=== PATIENT | female | born 1980 | race Caucasian/White ===

== ENCOUNTER 2016-06-17 15:47 | Outpatient (CLI) ==
[2016-04-06 18:58] VITALS: BMI 18.4
[2016-06-17 16:11] LABS: BASOPHILS # (AUTO) 0.1 K/uL (0-0.2); BASOPHILS % (AUTO) 0.8 % (0.0-3.0); EOSINOPHILS # (AUTO) 0.2 K/ul (0.0-0.7); EOSINOPHILS % (AUTO) 2.4 % (0.0-7.0); HEMATOCRIT 33.1 % (37.0-47.0); HEMOGLOBIN 9.3 g/dl (12.0-16.0); IMMATURE GRANULOCYTE % (AUTO) 0.3 % (0.0-5.0); LYMPHOCYTES # (AUTO) 2.2 K/uL (0.60-3.4); LYMPHOCYTES % (AUTO) 29.3 (10.0-50.0); MEAN CORPUSCULAR HEMOGLOBIN 18.1 pg (27.0-31.0); MEAN CORPUSCULAR HGB CONC 28.1 (31.8-35.4); MEAN CORPUSCULAR VOLUME 64.3 fl (81.0-99.0); MONOCYTES # (AUTO) 0.6 K/uL (0.4-2.0); MONOCYTES % (AUTO) 7.8 (0-10); NEUTROPHILS # (AUTO) 4.4 K/ul (2.0-6.9); NEUTROPHILS % (AUTO) 59.4; PLATELET COUNT 297 10^3/uL (140-440); RED BLOOD COUNT 5.15 10^6/ul (4.20-5.40); WHITE BLOOD COUNT 7.43 K/ul (4.6-10.2)
[2016-06-17 16:17] LABS: BILIRUBIN,URINE Negative (NEGATIVE); KETONES,URINE Negative (NEGATIVE); LEUKOCYTE ESTERASE ,URINE Negative (NEGATIVE); NITRITE,URINE Negative (NEGATIVE); PROTEIN,URINE Negative (NEGATIVE); URINE, BLOOD Negative (NEGATIVE)
[2016-06-17 16:24] LABS: ADD URINE MICROSCOPIC YES; COCAIN SCREEN,URINE NEGATIVE (NEGATIVE)
[2016-06-17 16:27] LABS: BACTERIA,URINE TRACE (NOT PRESENT)
--- NOTE | 2016-06-17 16:32 | DI ---
EXAM: Chest two view, frontal and lateral views. HISTORY: Chest pain. COMPARISON: 02/17/2016. FINDINGS: The heart size is normal. There is no pulmonary vascular congestion. The lungs are fabiola r. No pleural effusion or pneumothorax is seen. No acute osseous abnormality identified. Since prior study, there has been no significant interval change. IMPRESSION: No acute cardiopulmonary process.
[2016-06-17 17:07] LABS: ALBUMIN 4.1 g/dL (3.4-5.0); ALBUMIN/GLOBULIN RATIO 1.17; BILIRUBIN,TOTAL 0.54 mg/dL (0.00-1.20); BUN/CREATININE RATIO 11.11; CALCIUM 9.2 mg/dL (8.2-10.2); CREATININE 0.81 mg/dL (0.60-1.30); TOTAL PROTEIN 7.6 g/dL (6.4-8.2)
== END 2016-06-17 15:48 | disposition home or self-care (01) ==
LOC: LAB 15:47
PROVIDERS: ATTEND Family Medicine
DX: Z00.00 Encounter for general adult medical examination without abnormal findings (principal); I10 Essential (primary) hypertension; R07.9 Chest pain, unspecified; D50.9 Iron deficiency anemia, unspecified
CPT/HCPCS: 36415; 80053; 80061; 80306; 81001; 84439; 84443; 85025

== ENCOUNTER 2016-07-15 12:35 | Emergency (ER) ==
[2016-07-15 12:41] VITALS: BP 137/87; TEMP 98.9; BMI 20.7
[2016-07-15] MEDS ORDERED: ATIVAN IM STA (13:11)
[2016-07-15 13:41] LABS: BASOPHILS # (AUTO) 0.1 K/uL (0-0.2); BASOPHILS % (AUTO) 1.2 % (0.0-3.0); EOSINOPHILS # (AUTO) 0.1 K/ul (0.0-0.7); EOSINOPHILS % (AUTO) 1.3 % (0.0-7.0); HEMATOCRIT 33.1 % (37.0-47.0); HEMOGLOBIN 9.7 g/dl (12.0-16.0); IMMATURE GRANULOCYTE % (AUTO) 0.2 % (0.0-5.0); LYMPHOCYTES % (AUTO) 33.6 (10.0-50.0); MEAN CORPUSCULAR HEMOGLOBIN 18.7 pg (27.0-31.0); MEAN CORPUSCULAR HGB CONC 29.3 (31.8-35.4); MEAN CORPUSCULAR VOLUME 63.8 fl (81.0-99.0); MONOCYTES # (AUTO) 0.4 K/uL (0.4-2.0); MONOCYTES % (AUTO) 6.6 (0-10); NEUTROPHILS # (AUTO) 3.5 K/ul (2.0-6.9); NEUTROPHILS % (AUTO) 57.1; PLATELET COUNT 298 10^3/uL (140-440); RED BLOOD COUNT 5.19 10^6/ul (4.20-5.40); WHITE BLOOD COUNT 6.08 K/ul (4.6-10.2)
[2016-07-15 13:59] LABS: URINE PREGNANCY INTERNAL QC INTERNAL QC VALID
--- NOTE | 2016-07-15 14:04 | DI ---
EXAM: Chest two view, frontal and lateral views. HISTORY: Chest pain. COMPARISON: 06/17/2016. FINDINGS: The heart size is normal. There is no pulmonary vascular congestion. The lungs are fabiola r. No pleural effusion or pneumothorax is seen. No acute osseous abnormality identified. Since prior study, there has been no significant interval change. IMPRESSION: No acute cardiopulmonary process.
[2016-07-15 14:08] LABS: ALANINE AMINOTRANSFERASE < 6 U/L (12-78); ALBUMIN 4.1 g/dL (3.4-5.0); ALBUMIN/GLOBULIN RATIO 1.21; ALKALINE PHOSPHATASE 43 U/L (42-98); ANION GAP 14.6; ASPARTATE AMINO TRANSFERASE 11 U/L (15-37); BILIRUBIN,TOTAL 0.48 mg/dL (0.00-1.20); BLOOD UREA NITROGEN 6 mg/dL (7-18); BUN/CREATININE RATIO 7.69; CALCIUM 9.6 mg/dL (8.2-10.2); CARBON DIOXIDE 22 mmol/L (21-32); CHLORIDE 109 mmol/L (98-107); CREATINE KINASE 55 U/L; CREATININE 0.78 mg/dL (0.60-1.30); GLUCOSE 90 mg/dL (70-110); POTASSIUM 3.6 mmol/L (3.5-5.10); SODIUM 142 mmol/L (136-145); TOTAL PROTEIN 7.5 g/dL (6.4-8.2)
--- NOTE | 2016-07-15 14:37 | ED.PDOC ---
General ED Provider: Dr. MERRICK [place] Chief Complaint: Chest Pain Stated Complaint: chest pain Time Seen by Physician: 12:40 (pt is sad and anxious over her son's approaching anniversery of his passing) Mode of Arrival: Walk-In Information Source: Patient Exam Limitations: No limitations Primary Care Provider: JESSICA SALCEDO Nursing and Triage Documentation Reviewed and Agree: Yes (no extertional compenent) Cardiovascular Complaint Exam - Chest Pain Complaint/Exam Onset: Gradual Duration: 1 day Symptoms Are: Resolved Timing: Intermittent (when pt thinks about the event) Initial Severity: Mild Current Severity: None Location: Reports: Midsternal Pain Radiates: Reports: None Character: Reports: Dull Aggravating: Reports: None Alleviating: Reports: None Associated Signs and Symptoms: Denies: Diaphoresis, Nausea, Vomiting, Fever, Palpitations, Cough, Hemoptysis, Back pain, Abdominal pain, Dizziness, Short of air, Calf pain, Calf swelling Related History: Reports: Similar episode Related Surgical History: Reports: None History of Healthcare-Acquired Pneumonia: Reports: No AMI/ACS Risk Factors: Reports: Hypertension TAD Risk Factors: Reports: Hypertension Pulmonary Embolism Risk Factors: Reports: None Prior Care for this Complaint: No Recent Stress Test: No Recent Echo/LV Function: No JVD Present: No Subcutaneous Emphysema Present: No Diminshed Breath Sounds: No Reproducible Chest Wall Pain: No Bilateral Pulses Present: No Unequal Pulses Noted: No If Risk Factors for AMI/ACS Consider: EKG, Cardiac Enzymes Bioinformatics Support Specialist Consulted: No Differential Diagnoses: Other (anxiety) Review of Systems - Review Of Systems Constitutional: Reports: No symptoms Eyes: Reports: No symptoms Ears, Nose, Mouth, Throat: Reports: No symptoms Respiratory: Reports: No symptoms Cardiac: Reports: Chest pain GI: Reports: No symptoms : Reports: No symptoms Musculoskeletal: Reports: No symptoms Skin: Reports: No symptoms Neurological: Reports: Other (DEPRESSED, ANXIOUS NOT SUICIDAL) Endocrine: Reports: No symptoms Hematologic/Lymphatic: Reports: No symptoms All Other Systems: Reviewed and Negative Past Medical History - Past Medical History Previously Healthy: No Endocrine: Reports: None Cardiovascular: Reports: Hypertension, Other Respiratory: Reports: Asthma Hematological: Reports: Anemia Gastrointestinal: Reports: None Genitourinary: Reports: None Neuro/Psych: Reports: Migraine, Anxiety, Depression, Bipolar Disorder, PTSD Musculoskeletal: Reports: None Cancer: Reports: None Last Menstrual Period: CURRENT Other Pertinent Past Medical History: low blood sugar - Surgical History General Surgical History: Reports: Tubal ligation (btl07 D&C 2001), ( x2), Orthopedic (RIGHT PINKIE FX REPAIR) - Family History Family History: Reports: None - Social History Smoking Status: Never smoker Hx Substance Use: No Alcohol Screening: None - Immunizations Tetanus Shot up to Date: Yes Physical Exam - Physical Exam Appearance: Well-appearing, No pain distress, Well-nourished Eyes: KISHAN, EOMI, Conjunctiva clear ENT: Ears normal, Nose normal, Oropharynx normal Respiratory: Airway patent, Breath sounds clear, Breath sounds equal, Respirations nonlabored Cardiovascular: RRR, Pulses normal, No rub, No murmur GI/: Soft, Nontender, No masses, Bowel sounds normal, No Organomegaly Musculoskeletal: Normal strength, ROM intact, No edema, No calf tenderness Skin: Warm, Dry, Normal color Neurological: Sensation intact, Motor intact, Reflexes intact, Cranial nerves intact, Alert, Oriented Psychiatric: Affect appropriate, Mood appropriate Interpretation - Radiology Interpretation Radiology Interpretation By: Radiologist Radiology Results: No acute changes Exam Interpreted: 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 Rate: Normal Rhythm: Sinus Ectopy: None - EKG Interpretation Rate: Normal Rhythm: Sinus Ectopy: None [place]: NL ST Segment: Normal Re-Evaluation - Re-Evaluation Time of Re-Evaluation: 13:00 Vital Signs Stable: No Pain Level: 0 Appearance: NAD Lungs: Clear Skin: Warm and Dry Neuro: Alert and Oriented X3 CV: RRR - Re-Evaluation Time of Re-Evaluation: 14:39 Status: Improved Vital Signs Stable: Yes Pain Level: 0 Appearance: NAD Skin: Warm and Dry Neuro: Alert and Oriented X3 CV: RRR Critical Care Note - Critical Care Note Total Time (mins): 0 Course - Course Hematology/Chemistry: 07/15/16 13:30 07/15/16 13:30 Orders, Labs, Meds: Lab Review 07/15/16 07/15/16 13:30 13:50 WBC 6.08 RBC 5.19 Hgb 9.7 L Hct 33.1 L MCV 63.8 L MCH 18.7 L MCHC 29.3 L RDW Coeff of Tamiko 20.5 H Plt Count 298 Immature Gran % (Auto) 0.2 Neut % (Auto) 57.1 Lymph % (Auto) 33.6 Boundary % (Auto) 6.6 Eos % (Auto) 1.3 Baso % (Auto) 1.2 Immature Gran # (Auto) 0.0 Neut # 3.5 Lymph # 2.0 Boundary # 0.4 Eos # 0.1 Baso # 0.1 D-Dimer 0.20 Sodium 142 Potassium 3.6 Chloride 109 H Carbon Dioxide 22 Anion Gap 14.6 BUN 6 L Creatinine 0.78 Estimated GFR (MDRD) 83.00 BUN/Creatinine Ratio 7.69 Glucose 90 Calcium 9.6 Total Bilirubin 0.48 AST 11 L ALT < 6 L Alkaline Phosphatase 43 Total Creatine Kinase 55 Troponin I < 0.0100 Total Protein 7.5 Albumin 4.1 Globulin 3.4 Albumin/Globulin Ratio 1.21 Urine Test Negative Orders Category Date Time Status EKG-(ED ONLY) Stat CARDIO 07/15/16 13:08 Completed CBC W/ AUTO DIFF Stat LAB 07/15/16 13:30 Completed COMPREHENSIVE METABOLIC PANEL Stat LAB 07/15/16 13:30 Completed CREATINE KINASE Stat LAB 07/15/16 13:30 Completed D-DIMER Stat LAB 07/15/16 13:30 Completed TROPONIN I Stat LAB 07/15/16 13:30 Completed URINE Stat LAB 07/15/16 13:50 Completed Lorazepam Inj [Ativan] MEDS 07/15/16 13:11 Discontinued 1 mg IM ONCE STA CHEST, 2 VIEWS PA & LAT Stat RADS 07/15/16 13:07 Completed Medications Discontinued Medications Generic Name Dose Route Start Last Admin Trade Name Freq PRN Reason Stop Dose Admin Lorazepam 1 mg 07/15/16 13:11 07/15/16 13:30 Ativan IM 07/15/16 13:12 1 mg ONCE STA Administration Vital Signs: Temp Pulse Resp BP Pulse Ox 07/15/16 12:35 98.9 F 82 20 137/87 100 JUD Risk Score JUD Risk Score: Risk Score Odds of by 30D 0 0.1 (0.1-0.2) 1 0.3 (0.2-0.3) 2 0.4 (0.3-0.5) 3 0.7 (0.6-0.9) 4 1.2 (1.0-1.5) 5 2.2 (1.9-2.6) 6 3.0 (2.5-3.6) 7 4.8 (3.8-6.1) Departure - Departure Time of Disposition: 14:39 Disposition: HOME SELF-CARE Discharge Problem: Chest pain, Anxiety, Anemia Instructions: Anemia (ED) Condition: Good Pt referred to PMD for follow-up: No Prescriptions: Alprazolam [Xanax] 0.5 mg PO DAILY #7 tablet Allergies/Adverse Reactions: Allergies sulfamethoxazole [From Bactrim] Adverse Reaction (Verified 04/06/16 18:58) trimethoprim [From Bactrim] Adverse Reaction (Verified 04/06/16 18:58) Home Medications: Ambulatory Orders Alprazolam [Xanax] 0.5 mg PO DAILY #7 tablet 07/15/16 Disposition Discussed With: Patient
== END 2016-07-15 15:03 | disposition home or self-care (01) ==
LOC: ED 12:35
DX: R07.9 Chest pain, unspecified (principal); F41.9 Anxiety disorder, unspecified; D64.9 Anemia, unspecified; I10 Essential (primary) hypertension
CPT/HCPCS: 36415; 80053; 81025; 82550; 84484; 85025; 85379; 93005; 93010; 96374; 99284

== ENCOUNTER 2016-08-26 08:36 | Outpatient (CLI) ==
[2016-08-26 08:53] LABS: BASOPHILS # (AUTO) 0.1 K/uL (0-0.2); EOSINOPHILS # (AUTO) 0.2 K/ul (0.0-0.7); EOSINOPHILS % (AUTO) 2.9 % (0.0-7.0); HEMATOCRIT 35.1 % (37.0-47.0); HEMOGLOBIN 10.3 g/dl (12.0-16.0); IMMATURE GRANULOCYTE % (AUTO) 0.3 % (0.0-5.0); LYMPHOCYTES # (AUTO) 2.5 K/uL (0.60-3.4); LYMPHOCYTES % (AUTO) 35.9 (10.0-50.0); MEAN CORPUSCULAR HEMOGLOBIN 19.9 pg (27.0-31.0); MEAN CORPUSCULAR HGB CONC 29.3 (31.8-35.4); MEAN CORPUSCULAR VOLUME 67.9 fl (81.0-99.0); MONOCYTES # (AUTO) 0.6 K/uL (0.4-2.0); MONOCYTES % (AUTO) 8.3 (0-10); NEUTROPHILS # (AUTO) 3.5 K/ul (2.0-6.9); NEUTROPHILS % (AUTO) 51.6; PLATELET COUNT 239 10^3/uL (140-440); RED BLOOD COUNT 5.17 10^6/ul (4.20-5.40); WHITE BLOOD COUNT 6.86 K/ul (4.6-10.2)
[2016-08-26 08:56] LABS: BILIRUBIN,URINE Negative (NEGATIVE); KETONES,URINE Negative (NEGATIVE); LEUKOCYTE ESTERASE ,URINE Negative (NEGATIVE); NITRITE,URINE Negative (NEGATIVE); PH,URINE 5.5 (5-9); PROTEIN,URINE Negative (NEGATIVE); URINE, BLOOD Negative (NEGATIVE)
[2016-08-26 09:04] LABS: ADD URINE MICROSCOPIC NO
[2016-08-26 09:06] LABS: ALBUMIN 3.9 g/dL (3.4-5.0); ALBUMIN/GLOBULIN RATIO 1.26; ANION GAP 10.1; BILIRUBIN,TOTAL 0.36 mg/dL (0.00-1.20); BUN/CREATININE RATIO 9.63; CALCIUM 9.1 mg/dL (8.2-10.2); CREATININE 0.83 mg/dL (0.60-1.30); POTASSIUM 4.1 mmol/L (3.5-5.10)
[2016-08-26 09:09] LABS: ANISOCYTOSIS 2+ (NOT PRESENT); MICROCYTOSIS 1+ (NOT PRESENT)
[2016-08-26 09:11] LABS: SERUM PREGNANCY INTERNAL QC INTERNAL QC VALID
== END 2016-08-26 08:37 | disposition home or self-care (01) ==
LOC: LAB 08:36
PROVIDERS: ATTEND Family Medicine
DX: R35.0 Frequency of micturition (principal); D50.9 Iron deficiency anemia, unspecified; R52 Pain, unspecified; N92.0 Excessive and frequent menstruation with regular cycle; F31.9 Bipolar disorder, unspecified
CPT/HCPCS: 36415; 80053; 81001; 84703; 85008; 85025; 86140

== ENCOUNTER 2016-10-17 12:36 | Outpatient (CLI) ==
[2016-10-17 12:53] LABS: BASOPHILS # (AUTO) 0.1 K/uL (0-0.2); BASOPHILS % (AUTO) 0.7 % (0.0-3.0); EOSINOPHILS # (AUTO) 0.1 K/ul (0.0-0.7); EOSINOPHILS % (AUTO) 0.9 % (0.0-7.0); HEMATOCRIT 38.3 % (37.0-47.0); HEMOGLOBIN 12.2 g/dl (12.0-16.0); IMMATURE GRANULOCYTE % (AUTO) 0.3 % (0.0-5.0); LYMPHOCYTES # (AUTO) 1.9 K/uL (0.60-3.4); LYMPHOCYTES % (AUTO) 25.7 (10.0-50.0); MEAN CORPUSCULAR HGB CONC 31.9 (31.8-35.4); MEAN CORPUSCULAR VOLUME 75.2 fl (81.0-99.0); MONOCYTES # (AUTO) 0.5 K/uL (0.4-2.0); MONOCYTES % (AUTO) 6.5 (0-10); NEUTROPHILS % (AUTO) 65.9; PLATELET COUNT 233 10^3/uL (140-440); RED BLOOD COUNT 5.09 10^6/ul (4.20-5.40); WHITE BLOOD COUNT 7.55 K/ul (4.6-10.2)
[2016-10-17 13:02] LABS: BILIRUBIN,URINE Negative (NEGATIVE); KETONES,URINE Negative (NEGATIVE); LEUKOCYTE ESTERASE ,URINE Negative (NEGATIVE); NITRITE,URINE Negative (NEGATIVE); PROTEIN,URINE Negative (NEGATIVE); URINE, BLOOD Negative (NEGATIVE)
[2016-10-17 13:04] LABS: ADD URINE MICROSCOPIC YES
--- NOTE | 2016-10-17 13:34 | CT ---
EXAM: CT of the sinuses/maxillofacial region without contrast History: right sided facial pain. Technique: Multiplanar CT images through the maxillofacial region/sinuses were obtained without the administration of IV contrast Findings: Orbits are intact. The visualized intracranial contents demonstrate no grossly acute fin dings. No acute fracture or dislocation. Surrounding soft tissues demonstrate no acute abnormality . Minimal mucosal thickening of the left maxillary sinus. Paranasal sinuses are otherwise clear. N stacey septum is bowed to the right. Bilateral ostiomeatal units are not occluded. Mastoid air cells are clear. Impression: Minimal mucosal thickening of the inferior left maxillary sinus. Paranasal sinuses and mastoid air cells are otherwise clear.
[2016-10-17 13:36] LABS: ALBUMIN 3.7 g/dL (3.4-5.0); ALBUMIN/GLOBULIN RATIO 1.03; ANION GAP 10.8; BILIRUBIN,TOTAL 0.37 mg/dL (0.00-1.20); BUN/CREATININE RATIO 7.77; CALCIUM 9.2 mg/dL (8.2-10.2); CREATININE 0.9 mg/dL (0.60-1.30); POTASSIUM 3.8 mmol/L (3.5-5.10); TOTAL PROTEIN 7.3 g/dL (6.4-8.2)
[2016-10-17 13:45] LABS: BACTERIA,URINE TRACE (NOT PRESENT)
== END 2016-10-17 12:37 | disposition home or self-care (01) ==
LOC: RAD 12:36
PROVIDERS: ATTEND Family Medicine
DX: R51 Headache (principal); M54.2 Cervicalgia; D50.9 Iron deficiency anemia, unspecified; R53.83 Other fatigue; R06.02 Shortness of breath; J45.909 Unspecified asthma, uncomplicated
CPT/HCPCS: 36415; 80053; 81001; 84439; 84443; 85025

== ENCOUNTER 2016-11-13 16:05 | Emergency (ER) ==
[2016-11-13 16:11] VITALS: BP 134/91; TEMP 97.6; BMI 19.8
[2016-11-13] MEDS ORDERED: TORADOL IM STA (16:42)
[2016-11-13] MEDS ORDERED: ZOFRAN 4 MG/2 ML IM STA (16:42)
[2016-11-13] MEDS ORDERED: IMITREX PO STA (16:44)
--- NOTE | 2016-11-13 16:46 | ED.PDOC ---
General ED Provider: Dr. KATHARINA BARBER Chief Complaint: Headache Stated Complaint: been hurting in head, typical migraine, imitrex helps. but she is out of them Time Seen by Physician: 16:43 Mode of Arrival: Walk-In Information Source: Patient Primary Care Provider: JESSICA SALCEDO Nursing and Triage Documentation Reviewed and Agree: Yes Neurological Complaint Exam - Headache Complaint/Exam Onset: Gradual Symptoms Are: Still present Timing: Constant Episodes Lasting: Hours Worst Headache Ever: No Initial Severity: Moderate Current Severity: Moderate Location: Right, Left, Frontal Character: Reports: Dull, Throbbing Aggravating: Reports: Bright lights Alleviating: Reports: None Associated Signs and Symptoms: Denies: Dizziness, Seizure, Nausea, Vomiting, Sinus pressure, Fever, Neck pain, Neck stiffness, Decreased LOC, Visual changes Related History: Reports: Similar episode Related Surgical History: Reports: None SAH Risk Factors: Reports: None Meningitis Risk Factors: Reports: None SDH Risk Factors: Reports: None Temporal Arteritis Risk Factors: Reports: None Normal Head CT Within Last 12 Months: No Fundoscopic Exam: Present: Normal Findings Temporal Artery Tenderness: Present: None Sinus Tenderness: Present: None TMJ Tenderness: Present: None Meningeal Signs Positive: No Pain on Passive Flexion-Positive Kernig's: No ROM Limited In: No Limitiations Focal Weakness: Present: None Focal Sensory Loss: Present: None Gait: Normal Nystagmus Present: No Gag Reflex Present: Yes [id number]: Normal Findings Romberg Test Positive: No Babinski Sign: Negative Right, Negative Left Differential Diagnoses: Migraine Review of Systems - Review Of Systems Constitutional: Reports: No symptoms Eyes: Reports: No symptoms Ears, Nose, Mouth, Throat: Reports: No symptoms Respiratory: Reports: No symptoms Cardiac: Reports: No symptoms GI: Reports: No symptoms : Reports: No symptoms Musculoskeletal: Reports: No symptoms Skin: Reports: No symptoms Neurological: Reports: Headache Endocrine: Reports: No symptoms Hematologic/Lymphatic: Reports: No symptoms All Other Systems: Reviewed and Negative Past Medical History - Past Medical History Previously Healthy: No Endocrine: Reports: None Cardiovascular: Reports: Hypertension, Other Respiratory: Reports: Asthma Hematological: Reports: Anemia Gastrointestinal: Reports: None Genitourinary: Reports: None Neuro/Psych: Reports: Migraine, Anxiety, Depression, Bipolar Disorder, PTSD Musculoskeletal: Reports: None Cancer: Reports: None Last Menstrual Period: 11/12/2016 Other Pertinent Past Medical History: low blood sugar - Surgical History General Surgical History: Reports: Tubal ligation (btl07 D&C 2001), ( x2), Orthopedic (RIGHT PINKIE FX REPAIR) - Family History Family History: Reports: None - Social History Smoking Status: Former smoker Hx Substance Use: No Alcohol Screening: Occasionally - Immunizations Tetanus Shot up to Date: Yes Physical Exam - Physical Exam Appearance: Ill-appearing, Thin Pain Distress: Moderate Eyes: KISHAN, EOMI, Conjunctiva clear ENT: Ears normal, Nose normal, Oropharynx normal Respiratory: Airway patent, Breath sounds clear, Breath sounds equal, Respirations nonlabored Cardiovascular: RRR, Pulses normal, No rub, No murmur GI/: Soft, Nontender, No masses, Bowel sounds normal, No Organomegaly Musculoskeletal: Normal strength, ROM intact, No edema, No calf tenderness Skin: Warm, Dry, Normal color Neurological: Sensation intact, Motor intact, Reflexes intact, Cranial nerves intact, Alert, Oriented Psychiatric: Affect appropriate, Mood appropriate Critical Care Note - Critical Care Note Total Time (mins): 0 Course - Course Orders, Labs, Meds: Orders Category Date Time Status Ketorolac Tromethamine [Toradol] MEDS 11/13/16 16:42 Discontinued 30 mg IM ONCE STA Ondansetron HCl/Pf [Zofran 4 mg/2 ml] MEDS 11/13/16 16:42 Discontinued 4 mg IM ONCE STA Sumatriptan Succinate [Imitrex] MEDS 11/13/16 16:44 Discontinued 50 mg PO ONCE STA Medications Discontinued Medications Generic Name Dose Route Start Last Admin Trade Name Penny PRN Reason Stop Dose Admin Ketorolac Tromethamine 30 mg 11/13/16 16:42 11/13/16 16:54 Toradol IM 11/13/16 16:43 30 mg ONCE STA Administration Ondansetron HCl 4 mg 11/13/16 16:42 11/13/16 16:53 Zofran 4 Mg/2 Ml IM 11/13/16 16:43 4 mg ONCE STA Administration Sumatriptan Succinate 50 mg 11/13/16 16:44 11/13/16 16:58 Imitrex PO 11/13/16 16:45 50 mg ONCE STA Administration Vital Signs: Temp Pulse Resp BP Pulse Ox 11/13/16 16:06 97.6 F 87 16 134/91 H 99 Departure - Departure Time of Disposition: 17:07 Disposition: HOME SELF-CARE Discharge Problem: Headache Instructions: Migraine Headache (ED) Condition: Stable Pt referred to PMD for follow-up: Yes Additional Instructions: Needs to f/u with PMD Prescriptions: Sumatriptan Succinate [Imitrex] 50 mg PO ONCE #10 tablet Allergies/Adverse Reactions: Allergies sulfamethoxazole [From Bactrim] Adverse Reaction (Verified 11/13/16 16:14) trimethoprim [From Bactrim] Adverse Reaction (Verified 11/13/16 16:14) Home Medications: Ambulatory Orders Norgestimate-Ethinyl Estradiol [Ortho Tri-Cyclen 28 Tablet] 1 tab PO DAILY 11/13 Sumatriptan Succinate [Imitrex] 50 mg PO ONCE #10 tablet 11/13/16 Disposition Discussed With: Patient
== END 2016-11-13 17:40 | disposition home or self-care (01) ==
LOC: ED 16:05
DX: G43.909 Migraine, unspecified, not intractable, without status migrainosus (principal); I10 Essential (primary) hypertension
CPT/HCPCS: 96372; 99282

== ENCOUNTER 2016-12-12 08:14 | Emergency (ER) ==
[2016-12-12 08:19] VITALS: BP 122/84; TEMP 97.3; BMI 20.7
[2016-12-12] MEDS ORDERED: MORPHINE 4 MG/ML SYRINGE IM STA (08:27)
[2016-12-12] MEDS ORDERED: ZOFRAN 4 MG/2 ML IM STA (08:27)
[2016-12-12 08:39] LABS: BASOPHILS % (AUTO) 0.6 % (0.0-3.0); EOSINOPHILS # (AUTO) 0.2 K/ul (0.0-0.7); EOSINOPHILS % (AUTO) 2.9 % (0.0-7.0); HEMATOCRIT 36.3 % (37.0-47.0); HEMOGLOBIN 11.8 g/dl (12.0-16.0); IMMATURE GRANULOCYTE % (AUTO) 0.2 % (0.0-5.0); LYMPHOCYTES # (AUTO) 1.5 K/uL (0.60-3.4); LYMPHOCYTES % (AUTO) 24.5 (10.0-50.0); MEAN CORPUSCULAR HEMOGLOBIN 25.1 pg (27.0-31.0); MEAN CORPUSCULAR HGB CONC 32.5 (31.8-35.4); MEAN CORPUSCULAR VOLUME 77.2 fl (81.0-99.0); MONOCYTES # (AUTO) 0.5 K/uL (0.4-2.0); MONOCYTES % (AUTO) 8.4 (0-10); NEUTROPHILS % (AUTO) 63.4; PLATELET COUNT 212 10^3/uL (140-440); WHITE BLOOD COUNT 6.28 K/ul (4.6-10.2)
[2016-12-12 08:57] LABS: SERUM PREGNANCY INTERNAL QC INTERNAL QC VALID
[2016-12-12 08:59] LABS: ALBUMIN 3.6 g/dL (3.4-5.0); ALBUMIN/GLOBULIN RATIO 1.06; ANION GAP 13.9; BILIRUBIN,TOTAL 0.4 mg/dL (0.00-1.20); BUN/CREATININE RATIO 7.5; CALCIUM 8.8 mg/dL (8.2-10.2); CREATININE 0.8 mg/dL (0.60-1.30); POTASSIUM 3.9 mmol/L (3.5-5.10)
--- NOTE | 2016-12-12 09:39 | CT ---
EXAM: CT BRAIN HISTORY: Head pain TECHNIQUE: CT brain without intravenous contrast. 5-mm axial sections with Reformations. COMPARISON: 03/13/2016 FINDINGS: Brain is unremarkable without distinct evidence of hemorrhage or large vessel distribution recent ischemic infarction. There is no suggestion of acute hydrocephalus or subdural fluid collection. N o mass or mass effect. Cranium is within normal limits. Mastoid air cells are aerated. The visualized paranasal sinuses are clear. IMPRESSION: No acute intracranial process.
--- NOTE | 2016-12-12 09:46 | ED.PDOC ---
General ED Provider: Dr. MERRICK HO Chief Complaint: Headache Stated Complaint: headache Time Seen by Physician: 08:17 (no new change in pain pattern no trauma no fever ) Mode of Arrival: Walk-In Information Source: Patient Exam Limitations: No limitations Primary Care Provider: JESSICA SALCEDO Nursing and Triage Documentation Reviewed and Agree: Yes (seen with violeta at all times , ) Neurological Complaint Exam - Headache Complaint/Exam Onset: Gradual Duration: 1 day out of imitrex no changes in distribution , or character of pain Symptoms Are: Still present Timing: Constant Episodes Lasting: Hours Worst Headache Ever: No Initial Severity: Moderate Current Severity: Moderate Location: Left, Frontal, Parietal Character: Reports: Throbbing, Typical headache Aggravating: Reports: None Alleviating: Reports: None Associated Signs and Symptoms: Reports: Nausea. Denies: Dizziness, Seizure, Vomiting, Sinus pressure, Fever, Neck pain, Neck stiffness, Decreased LOC, Visual changes Related History: Reports: Similar episode Related Surgical History: Reports: None SAH Risk Factors: Reports: None Meningitis Risk Factors: Reports: None SDH Risk Factors: Reports: None Temporal Arteritis Risk Factors: Reports: None Normal Head CT Within Last 12 Months: No Papilledema Present: No Temporal Artery Tenderness: Present: None Sinus Tenderness: Present: None TMJ Tenderness: Present: None Glascow Coma Scale (see protocol): 15 Meningeal Signs Positive: No Pain on Passive Flexion-Positive Kernig's: No ROM Limited In: No Limitiations Focal Weakness: Present: None Focal Sensory Loss: Present: None Gait: Normal Nystagmus Present: No Gag Reflex Present: Yes Differential Diagnoses: Migraine Review of Systems - Review Of Systems Constitutional: Reports: No symptoms Eyes: Reports: No symptoms Ears, Nose, Mouth, Throat: Reports: No symptoms Respiratory: Reports: No symptoms Cardiac: Reports: No symptoms GI: Reports: No symptoms : Reports: No symptoms Musculoskeletal: Reports: No symptoms Skin: Reports: No symptoms Neurological: Reports: Headache Endocrine: Reports: No symptoms Hematologic/Lymphatic: Reports: No symptoms All Other Systems: Reviewed and Negative Past Medical History - Past Medical History Previously Healthy: No Endocrine: Reports: None Cardiovascular: Reports: Hypertension, Other Respiratory: Reports: Asthma Hematological: Reports: Anemia Gastrointestinal: Reports: None Genitourinary: Reports: None Neuro/Psych: Reports: Migraine, Anxiety, Depression, Bipolar Disorder, PTSD Musculoskeletal: Reports: None Cancer: Reports: None Last Menstrual Period: 12/19 Other Pertinent Past Medical History: low blood sugar - Surgical History General Surgical History: Reports: Tubal ligation (btl07 D&C 2001), ( x2), Orthopedic (RIGHT PINKIE FX REPAIR) - Family History Family History: Reports: None - Social History Smoking Status: Former smoker Hx Substance Use: No Alcohol Screening: Occasionally - Immunizations Tetanus Shot up to Date: Yes Physical Exam - Physical Exam Appearance: Well-appearing, No pain distress, Well-nourished Eyes: KISHAN, EOMI, Conjunctiva clear ENT: Ears normal, Nose normal, Oropharynx normal Respiratory: Airway patent, Breath sounds clear, Breath sounds equal, Respirations nonlabored Cardiovascular: RRR, Pulses normal, No rub, No murmur GI/: Soft, Nontender, No masses, Bowel sounds normal, No Organomegaly Musculoskeletal: Normal strength, ROM intact, No edema, No calf tenderness Skin: Warm, Dry, Normal color Neurological: Sensation intact, Motor intact, Reflexes intact, Cranial nerves intact, Alert, Oriented Psychiatric: Affect appropriate, Mood appropriate Interpretation - Radiology Interpretation Radiology Interpretation By: Radiologist Radiology Results: No acute changes Critical Care Note - Critical Care Note Total Time (mins): 0 Course - Course Hematology/Chemistry: 12/12/16 08:30 12/12/16 08:30 Orders, Labs, Meds: Lab Review 12/12/16 08:30 WBC 6.28 RBC 4.70 Hgb 11.8 L Hct 36.3 L MCV 77.2 L MCH 25.1 L MCHC 32.5 RDW Coeff of Tamiko 15.3 H Plt Count 212 Immature Gran % (Auto) 0.2 Neut % (Auto) 63.4 Lymph % (Auto) 24.5 Hickman % (Auto) 8.4 Eos % (Auto) 2.9 Baso % (Auto) 0.6 Immature Gran # (Auto) 0.0 Neut # 4.0 Lymph # 1.5 Hickman # 0.5 Eos # 0.2 Baso # 0.0 Sodium 140 Potassium 3.9 Chloride 108 H Carbon Dioxide 22 Anion Gap 13.9 BUN 6 L Creatinine 0.80 Estimated GFR (MDRD) 81.00 BUN/Creatinine Ratio 7.50 Glucose 105 Calcium 8.8 Total Bilirubin 0.40 AST 11 L ALT 6 L Alkaline Phosphatase 46 Total Protein 7.0 Albumin 3.6 Globulin 3.4 Albumin/Globulin Ratio 1.06 Serum , Qual Negative Orders Category Date Time Status CBC W/ AUTO DIFF Stat LAB 12/12/16 08:30 Completed COMPREHENSIVE METABOLIC PANEL Stat LAB 12/12/16 08:30 Completed SERUM Stat LAB 12/12/16 08:30 Completed Morphine Sulfate [Morphine 4 mg/ml Syringe] MEDS 12/12/16 08:27 Discontinued 4 mg IM ONCE STA Ondansetron HCl/Pf [Zofran 4 mg/2 ml] MEDS 12/12/16 08:27 Discontinued 4 mg IM ONCE STA CT HEAD W/O CONTRAST Stat RADS 12/12/16 08:27 Completed Medications Discontinued Medications Generic Name Dose Route Start Last Admin Trade Name Penny PRN Reason Stop Dose Admin Morphine Sulfate 4 mg 12/12/16 08:27 12/12/16 09:04 Morphine 4 Mg/Ml Syringe IM 12/12/16 08:28 4 mg ONCE STA Administration Ondansetron HCl 4 mg 12/12/16 08:27 12/12/16 09:04 Zofran 4 Mg/2 Ml IM 12/12/16 08:28 4 mg ONCE STA Administration Vital Signs: Temp Pulse Resp BP Pulse Ox 12/12/16 08:14 97.3 F L 82 20 122/84 98 Departure - Departure Time of Disposition: 09:47 Disposition: HOME SELF-CARE Discharge Problem: Headache Instructions: Migraine Headache (ED) Condition: Good Pt referred to PMD for follow-up: Yes Additional Instructions: Please call your Family Physician as soon as possible to schedule a follow-up appointment. Allergies/Adverse Reactions: Allergies sulfamethoxazole [From Bactrim] Adverse Reaction (Verified 11/13/16 16:14) trimethoprim [From Bactrim] Adverse Reaction (Verified 11/13/16 16:14) Home Medications: Ambulatory Orders Norgestimate-Ethinyl Estradiol [Ortho Tri-Cyclen 28 Tablet] 1 tab PO DAILY 11/13 Sumatriptan Succinate [Imitrex] 50 mg PO ONCE #10 tablet 11/13/16 Disposition Discussed With: Patient
== END 2016-12-12 10:07 | disposition home or self-care (01) ==
LOC: ED 08:14
DX: G43.909 Migraine, unspecified, not intractable, without status migrainosus (principal); D64.9 Anemia, unspecified
CPT/HCPCS: 36415; 80053; 84703; 85025; 96372; 99283

== ENCOUNTER 2016-12-27 05:58 | Observation (INO) ==
[2016-12-27] MEDS ORDERED: GI COCKTAIL PO STA (06:32)
[2016-12-27] MEDS ORDERED: TORADOL IVP STA (06:33)
--- NOTE | 2016-12-27 06:34 | ED.PDOC ---
General Stated Complaint: Patient is a 36 year old female who comes to the ER with complaints of chest pressure on the mild to left substernal area which she describes as heavy and pressure like. She thinks she got overheated at work last night at work. States her work has no Air conditioning and feels very weak. Time Seen by Physician: 06:10 Mode of Arrival: Walk-In Information Source: Patient Exam Limitations: No limitations Nursing and Triage Documentation Reviewed and Agree: Yes <LUCAS VERDUGO - Last Filed: 12/27/16 07:01> <MERRICK HO - Last Filed: 12/27/16 07:58> ED Provider: Dr. MERRICK HO Chief Complaint: Chest Pain Primary Care Provider: JESSICA SALCEDO Cardiovascular Complaint Exam - Chest Pain Complaint/Exam Onset: Sudden Duration: 15 hours Symptoms Are: Still present Timing: Constant Length of Chest Pain Episodes: 6 hours Initial Severity: Mild Current Severity: Moderate Location: Reports: Midsternal Pain Radiates: Reports: Left shoulder, Left arm Character: Reports: Pressure, Sharp Aggravating: Reports: None Alleviating: Reports: None Associated Signs and Symptoms: Denies: Diaphoresis, Nausea, Vomiting, Fever, Palpitations, Cough, Hemoptysis, Back pain, Abdominal pain, Dizziness, Short of air, Calf pain, Calf swelling Related History: Reports: Similar episode (many years ago ) Related Surgical History: Reports: None History of Healthcare-Acquired Pneumonia: Reports: No AMI/ACS Risk Factors: Reports: Family history, Hypertension TAD Risk Factors: Reports: Hypertension Pulmonary Embolism Risk Factors: Reports: OCs/Estrogen Prior Care for this Complaint: No Recent Stress Test: No JVD Present: No Subcutaneous Emphysema Present: No Diminshed Breath Sounds: No Reproducible Chest Wall Pain: Yes Bilateral Pulses Present: Yes Unequal Pulses Noted: No Chest Picture: 1 - tenderness to palpation 2 - radiation 3 - radiation of chest pain feels like an IV stick If Risk Factors for AMI/ACS Consider: EKG, Cardiac Enzymes, Aspirin Sonar Technician Consulted: No Differential Diagnoses: Acute MA, Chest Wall Pain, GI Diseasae, Pulmonary Embolism Quality Indicators For Acute MA or Cardiac Chest Pain: EKG in 10min., ASA if indicated <YOKOCARLOSLUCAS - Last Filed: 12/27/16 07:01> Review of Systems - Review Of Systems Constitutional: Reports: Weakness Eyes: Reports: No symptoms Ears, Nose, Mouth, Throat: Reports: No symptoms Respiratory: Reports: No symptoms Cardiac: Reports: Chest pain GI: Reports: No symptoms : Reports: No symptoms Musculoskeletal: Reports: No symptoms, Joint pain (Left shouler and arm pain) Skin: Reports: No symptoms Neurological: Reports: Anxiety Endocrine: Reports: Intolerance to heat Hematologic/Lymphatic: Reports: No symptoms All Other Systems: Reviewed and Negative <YOKOCARLOSLUCAS Navid Last Filed: 12/27/16 07:01> Past Medical History - Past Medical History Previously Healthy: No Endocrine: Reports: None Cardiovascular: Reports: Hypertension, Other Respiratory: Reports: Asthma Hematological: Reports: Anemia Gastrointestinal: Reports: None Genitourinary: Reports: None Neuro/Psych: Reports: Migraine, Anxiety, Depression, Bipolar Disorder, PTSD Musculoskeletal: Reports: None Cancer: Reports: None Last Menstrual Period: 2-3 WEEKS AGO Other Pertinent Past Medical History: low blood sugar - Surgical History General Surgical History: Reports: Tubal ligation (btl07 D&C 2001), ( x2), Orthopedic (RIGHT PINKIE FX REPAIR) - Family History Family History: Reports: Heart (mother with MA and stents at age 50) - Social History Smoking Status: Former smoker Hx Substance Use: No Alcohol Screening: None - Immunizations Tetanus Shot up to Date: Yes <YOKOLUCAS GONZALEZ Navid Last Filed: 12/27/16 07:01> Physical Exam - Physical Exam Appearance: Ill-appearing, Thin Ill-appearing: Mild Pain Distress: Moderate Neck: Supple Respiratory: Airway patent, Breath sounds clear, Breath sounds equal, Respirations nonlabored Cardiovascular: RRR, Pulses normal, No rub, No murmur GI/: Soft, Nontender, No masses, Bowel sounds normal, No Organomegaly Musculoskeletal: Normal strength, ROM intact, No edema, No calf tenderness Skin: Warm, Dry, Normal color Neurological: Sensation intact, Motor intact, Cranial nerves intact, Alert, Oriented Psychiatric: Anxious <YOKOCARLOSLUCAS Navdi Last Filed: 12/27/16 07:01> 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 Rhythm: Sinus Ectopy: None - EKG Interpretation Rate: Abilio (59) Rhythm: Sinus Ectopy: None [place]: NL ST Segment: Normal Interpretation: Sinus Bradycardia <LUCAS VERDUGO - Last Filed: 12/27/16 07:01> Physician Notification - Case Discussed Endorsed To/Discussed With: Yudy Time of Discussion: 07:00 <LUCAS VERDUGO - Last Filed: 12/27/16 07:01> Critical Care Note - Critical Care Note Total Time (mins): 15 <LUCAS VERDUGO - Last Filed: 12/27/16 07:01> Course - Course Hematology/Chemistry: 12/27/16 06:45 12/27/16 06:45 <GEORGIAMERRICK - Last Filed: 12/27/16 07:58> - Course Orders, Labs, Meds: Lab Review 12/27/16 06:45 WBC 6.42 RBC 4.63 Hgb 11.7 L Hct 35.7 L MCV 77.1 L MCH 25.3 L MCHC 32.8 RDW Coeff of Tamiko 15.4 H Plt Count 214 Immature Gran % (Auto) 0.2 Neut % (Auto) 49.1 Lymph % (Auto) 39.7 Parker % (Auto) 7.6 Eos % (Auto) 2.8 Baso % (Auto) 0.6 Immature Gran # (Auto) 0.0 Neut # 3.2 Lymph # 2.6 Parker # 0.5 Eos # 0.2 Baso # 0.0 D-Dimer (Manual) 181.01 Sodium 139 Potassium 3.6 Chloride 107 Carbon Dioxide 23 Anion Gap 12.6 BUN 8 Creatinine 0.81 Estimated GFR (MDRD) 80.00 BUN/Creatinine Ratio 9.87 Glucose 104 Calcium 9.4 Total Bilirubin 0.39 AST 11 L ALT 8 L Alkaline Phosphatase 43 Total Creatine Kinase 75 Troponin I < 0.0100 Total Protein 6.8 Albumin 3.7 Globulin 3.1 Albumin/Globulin Ratio 1.19 Serum , Qual Negative Orders Category Date Time Status EKG-(ED ONLY) Stat CARDIO 12/27/16 06:32 Completed ED UPKEEP WORKER APPLIED .ONCE EMERGENCY 12/27/16 06:32 Active ED IV/MEDIPORT/POWERPORT .ONCE EMERGENCY 12/27/16 06:32 Active CBC W/ AUTO DIFF Stat LAB 12/27/16 06:45 Completed COMPREHENSIVE METABOLIC PANEL Stat LAB 12/27/16 06:45 Completed CREATINE KINASE Stat LAB 12/27/16 06:45 Completed D-DIMER Stat LAB 12/27/16 06:45 Completed HCG QUALITATIVE [SERUM ] Stat LAB 12/27/16 06:45 Completed TROPONIN I Stat LAB 12/27/16 06:45 Completed 0.9 % Sodium Chloride [Saline Flush] MEDS 12/27/16 06:32 Active 1 syr IVF PRN PRN Aspirin [Aspirin Chewable] MEDS 12/27/16 06:38 Discontinued 324 mg .ROUTE .STK-MED ONE Aspirin [Aspirin Chewable] MEDS 12/27/16 06:36 Discontinued 324 mg PO ONCE STA Ketorolac Tromethamine [Toradol] MEDS 12/27/16 06:33 Discontinued 30 mg IVP ONCE STA Mag-Al Plus//Lidocaine [Gi Cocktail] MEDS 12/27/16 06:32 Discontinued 30 ml PO ONCE STA CHEST, 1V AP ONLY Stat RADS 12/27/16 06:32 Ordered Medications Generic Name Dose Route Start Last Admin Trade Name Freq PRN Reason Stop Dose Admin Sodium Chloride 1 syr 12/27/16 06:32 Saline Flush IVF PRN PRN To flush IV Discontinued Medications Generic Name Dose Route Start Last Admin Trade Name Freq PRN Reason Stop Dose Admin Al Hydroxide/Mg Hydroxide 30 ml 12/27/16 06:32 12/27/16 06:45 Gi Cocktail PO 12/27/16 06:33 30 ml ONCE STA Administration Aspirin 324 mg 12/27/16 06:36 12/27/16 06:46 Aspirin Chewable PO 12/27/16 06:37 324 mg ONCE STA Administration Ketorolac Tromethamine 30 mg 12/27/16 06:33 Toradol IVP 12/27/16 06:34 ONCE STA Vital Signs: Temp Pulse Resp BP Pulse Ox 12/27/16 05:59 99.2 F 86 20 119/83 100 JUD Risk Score Age >/= 65: No >/= 3 CAD Risk Factors: No Known CAD (Stenosis >/= 50%): No ASA Use in Past 7 Days: No Severe Angina (>/= 2 episodes in 24 hours): No EKG ST Changes >/= 0.5mm: No Postive Cardiac Marker: No JUD Total Score: 0 <LUCAS VERDUGO - Last Filed: 12/27/16 07:01> Departure <LUCAS VERDUGO - Last Filed: 12/27/16 07:01> - Departure Time of Disposition: 07:57 (took over care from sonya MCKNIGHT. pt is pain free discussed admission with kristi at bedside 7;50 am then at 806 am with sade berman pt is willing to be admitted ) Pt referred to PMD for follow-up: Yes (admitt) <MERRICK HO - Last Filed: 12/27/16 07:58> - Departure Disposition: ADMITTED INPATIENT Discharge Problem: Chest pain Instructions: Chest Pain (ED) Condition: Good Additional Instructions: Please call your Family Physician as soon as possible to schedule a follow-up appointment. Allergies/Adverse Reactions: Allergies sulfamethoxazole [From Bactrim] Adverse Reaction (Verified 12/27/16 06:10) trimethoprim [From Bactrim] Adverse Reaction (Verified 12/27/16 06:10) Home Medications: Ambulatory Orders Norgestimate-Ethinyl Estradiol [Ortho Tri-Cyclen 28 Tablet] 1 tab PO DAILY 11/13 Sumatriptan Succinate [Imitrex] 50 mg PO ONCE #10 tablet 11/13/16
[2016-12-27] MEDS ORDERED: ASPIRIN CHEWABLE PO STA (06:36)
[2016-12-27] MEDS ORDERED: ASPIRIN CHEWABLE ONE (06:38)
[2016-12-27 06:54] LABS: BASOPHILS % (AUTO) 0.6 % (0.0-3.0); EOSINOPHILS # (AUTO) 0.2 K/ul (0.0-0.7); EOSINOPHILS % (AUTO) 2.8 % (0.0-7.0); HEMATOCRIT 35.7 % (37.0-47.0); HEMOGLOBIN 11.7 g/dl (12.0-16.0); IMMATURE GRANULOCYTE % (AUTO) 0.2 % (0.0-5.0); LYMPHOCYTES # (AUTO) 2.6 K/uL (0.60-3.4); LYMPHOCYTES % (AUTO) 39.7 (10.0-50.0); MEAN CORPUSCULAR HEMOGLOBIN 25.3 pg (27.0-31.0); MEAN CORPUSCULAR HGB CONC 32.8 (31.8-35.4); MEAN CORPUSCULAR VOLUME 77.1 fl (81.0-99.0); MONOCYTES # (AUTO) 0.5 K/uL (0.4-2.0); MONOCYTES % (AUTO) 7.6 (0-10); NEUTROPHILS # (AUTO) 3.2 K/ul (2.0-6.9); NEUTROPHILS % (AUTO) 49.1; PLATELET COUNT 214 10^3/uL (140-440); RED BLOOD COUNT 4.63 10^6/ul (4.20-5.40); WHITE BLOOD COUNT 6.42 K/ul (4.6-10.2)
[2016-12-27 07:18] LABS: SERUM PREGNANCY INTERNAL QC INTERNAL QC VALID
[2016-12-27 07:23] LABS: ALANINE AMINOTRANSFERASE 8 U/L (12-78); ALBUMIN 3.7 g/dL (3.4-5.0); ALBUMIN/GLOBULIN RATIO 1.19; ALKALINE PHOSPHATASE 43 U/L (42-98); ANION GAP 12.6; ASPARTATE AMINO TRANSFERASE 11 U/L (15-37); BILIRUBIN,TOTAL 0.39 mg/dL (0.00-1.20); BLOOD UREA NITROGEN 8 mg/dL (7-18); BUN/CREATININE RATIO 9.87; CALCIUM 9.4 mg/dL (8.2-10.2); CARBON DIOXIDE 23 mmol/L (21-32); CHLORIDE 107 mmol/L (98-107); CREATINE KINASE 75 U/L; CREATININE 0.81 mg/dL (0.60-1.30); GLUCOSE 104 mg/dL (70-110); POTASSIUM 3.6 mmol/L (3.5-5.10); SODIUM 139 mmol/L (136-145); TOTAL PROTEIN 6.8 g/dL (6.4-8.2)
--- NOTE | 2016-12-27 08:42 | DI ---
EXAM: Single view of the chest. History: Chest pain. Comparison: Chest radiograph 07/15/2016 Findings: Heart size is normal. No focal consolidation. No appreciable pleural fluid and no pneum othorax. No acute osseous abnormalities. Impression: No acute cardiopulmonary process.
--- NOTE | 2016-12-27 08:52 | US ---
EXAM: Limited abdominal ultrasound. History: Right upper quadrant abdominal pain. Comparison: CT abdomen pelvis 04/10/2014 Technique: Multiple sonographic images through the abdomen were obtained. Color duplex Doppler was used to interrogate vascular flow. Findings: The liver is not enlarged according to the sonographic measurement given. Visualized pancreas demon strates no gross abnormality. No abdominal ascites. No shadowing gallstones. Gallbladder wall is not thickened. Common bile duct measures 0.2 cm in caliber. Limited visualization of the right kid ursula demonstrates no evidence for hydronephrosis. There is antegrade flow within the main portal vei n. 1 cm anechoic right renal cyst. Impression: 1. No acute sonographic findings. 2. Small simple right renal cyst.
[2016-12-27 10:00] VITALS: BMI 19.9
[2016-12-27] MEDS: NORGESTIMATE ETHINYL ESTRADIOL PO SCH (10:01)
[2016-12-27] MEDS: SODIUM CHLORIDE 1,000 ML IV SCH ×2 (10:01→22:26)
[2016-12-28 04:50] LABS: BASOPHILS # (AUTO) 0.1 K/uL (0-0.2); BASOPHILS % (AUTO) 0.8 % (0.0-3.0); EOSINOPHILS # (AUTO) 0.2 K/ul (0.0-0.7); EOSINOPHILS % (AUTO) 3.2 % (0.0-7.0); HEMATOCRIT 34.7 % (37.0-47.0); HEMOGLOBIN 11.1 g/dl (12.0-16.0); IMMATURE GRANULOCYTE % (AUTO) 0.2 % (0.0-5.0); LYMPHOCYTES # (AUTO) 2.5 K/uL (0.60-3.4); LYMPHOCYTES % (AUTO) 37.8 (10.0-50.0); MEAN CORPUSCULAR HEMOGLOBIN 24.7 pg (27.0-31.0); MEAN CORPUSCULAR VOLUME 77.3 fl (81.0-99.0); MONOCYTES # (AUTO) 0.6 K/uL (0.4-2.0); MONOCYTES % (AUTO) 8.4 (0-10); NEUTROPHILS # (AUTO) 3.2 K/ul (2.0-6.9); NEUTROPHILS % (AUTO) 49.6; PLATELET COUNT 203 10^3/uL (140-440); RED BLOOD COUNT 4.49 10^6/ul (4.20-5.40); WHITE BLOOD COUNT 6.51 K/ul (4.6-10.2)
[2016-12-28 05:16] LABS: ALBUMIN 3.3 g/dL (3.4-5.0); ALBUMIN/GLOBULIN RATIO 1.22; ANION GAP 11.9; BILIRUBIN,TOTAL 0.33 mg/dL (0.00-1.20); BUN/CREATININE RATIO 10.38; CALCIUM 8.5 mg/dL (8.2-10.2); CREATININE 0.77 mg/dL (0.60-1.30); POTASSIUM 3.9 mmol/L (3.5-5.10)
[2016-12-28] MEDS: NORGESTIMATE ETHINYL ESTRADIOL PO SCH (09:30)
[2016-12-28 09:58] VITALS: BP 91/61; TEMP 98
--- NOTE | 2016-12-28 15:13 | HP ---
DATE OF SERVICE: 12/27/16 REASON FOR HOSPITALIZATION: Weak, tired and some epigastric pain. HISTORY OF PRESENT ILLNESS: The patient is a 36 year old female who works at the [employer]. The patient when she was working the previous day there was no A/C working there so she was working all night there. She thought she was over working and sweating and started having the mid to left chest sub sharp pain and shoulder pain and just didn't feel right and started having migraine headache. She came to the emergency room and was seen by Dr. Smith. EKG was normal. Coags were normal, chemistry normal. Chest x-ray did not show cardiopulmonary process. At that time ultrasound of the abdomen was also done which showed the right renal cyst otherwise ultrasound gallbladder was normal. At that time the patient was admitted to the observation for heat exhaustion and chest pain which is noncardiac. REVIEW OF SYSTEMS: CONSTITUTIONAL: No night sweats. Weakness and tiredness. No fever or chills. HEENT: Eyes: No visual changes. No eye pain. No eye discharge. ENT: No runny nose. No epistaxis. No sinus pain. No sore throat. No odynophagia. No ear pain. No congestion. RESPIRATORY: No cough, no congestion. No hemoptysis. CARDIOVASCULAR: No angina symptoms. No CHF symptoms. No atypical chest pain for CAD. No palpitations. No shortness of breath. Chest pain. GASTROINTESTINAL: No abdominal pain. No nausea or vomiting. No diarrhea or constipation. No hematemesis. No hematochezia. GENITOURINARY: No urgency. No frequency. No dysuria. No hematuria. No obstructive symptoms. No discharge. No pain. No significant abnormal bleeding. MUSCULOSKELETAL: No musculoskeletal pain. No joint swelling. No arthritis. Hurting all over. NEUROLOGICAL: Headache. No neck pain. No syncope. No seizures. No dizziness. PSYCHIATRIC: Not anxious. No depression. No suicidal thoughts. No homicidal thoughts. SKIN: No rash. No lesions. No wounds. ENDOCRINE: No unexplained weight loss. No weight gain. HEMATOLOGIC/LYMPHATIC: No anemia. No purpura. No petechiae. No prolonged or excessive bleeding. No palpable lymph nodes. PERSONAL/FAMILY/SOCIAL HISTORY: The patient is and lives with the and family. She works at the [employer]. She does not smoke or drink. Family history is significant for the heart problems but doesn't know what kind of heart problems. PAST MEDICAL/SURGICAL PROBLEMS: History of migraine headaches Asthmatic bronchitis PTSD after son Tube tied MEDICATIONS: Ferrous Sulfate 325mg PO twice a day Ortho Tri-Cyclen tablet PO daily Imitrex 50mg PO once ALLERGIES: Sulfamethoxazole Trimethoprim PHYSICAL EXAMINATION: VITAL SIGNS: Blood pressure 119/83, respiratory rate 20, heart rate 86 and temperature 99.2. HEENT: Head normocephalic, atraumatic. Eyes: Extraocular muscles are intact. Pupils are equal, round and reactive to light and accommodation. Ears: No lesions. Nose appeared normal. Throat: No exudate or erythema. Mucosa dry. NECK: Supple. No JVD, no carotid bruit. No lymphadenopathy or thyromegaly. LUNGS: Clear to auscultation. Percussion note normal. Chest symmetrical. HEART: S1, S2, no S3. No murmurs. No cyanosis or clubbing. No ascites. Pulses: Dorsalis pedis and posterior tibial pulses +1 to +2 both sides. ABDOMEN: Soft. Nontender. Bowel sounds active. No CVA tenderness. No mass felt. EXTREMITIES: No edema. Full range of motion of all extremities, equal. NEUROLOGIC: No focal deficit. Cranial nerves II through XII are grossly intact. No headache, no double vision or headache. SKIN: Not dry. Intact. Turgor - normal. LYMPHATIC: No palpable lymph nodes/no lymphedema. MUSCULOSKELETAL: Normal joints with no swelling. Muscle tone is normal. LABS: Sodium 139, potassium 3.9, chloride 107, bicarb 223, BUN 8, creatinine 0.81, WBC 6.42, hgb 11.7, hct 35.7 and plt count 214 ASSESSMENT: 1. Heat exhaustion 2. Chest pain, noncardiac 3. Migraine headache 4. Asthmatic bronchitis PLAN: 1. Admit the patient for the observation 2. IV fluids 3. GI cocktail 4. Rest 5. Aspirin Will follow the patient in daily rounds. TIME SPENT: More than 55 minutes. [facility]
--- NOTE | 2016-12-28 15:48 | DS ---
DATE OF SERVICE: 12/28/16 FINAL DIAGNOSIS: 1. Heat exhaustion 2. Chest pain, noncardiac 3. Anemia 4. Migraine headache 5. Asthmatic bronchitis 6. History of Tubectomy 7. Peptic ulcer disease DISCHARGE INSTRUCTIONS: Discharge the patient home. Increase hydration. Heat stroke prevention discussed. Safety work environment. MEDICATIONS AT DISCHARGE: Ferrous Sulfate 325mg PO twice a day Imitrex 50mg PRN NEW PRESCRIPTIONS: Zantac 150mg PO twice a day DIET INSTRUCTIONS: Healthy diet Increase plenty of water ACTIVITY: As tolerated SMOKING: Former smoker DISEASE SPECIFIC EDUCATION: Heat exhaustion Peptic ulcer disease been discussed and verbalized understanding. 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 She came to the Emergency room and was seen by Dr. Blackwell initially and then Dr. Smith in the emergency room. Ultrasound of the gallbladder was negative for any gallstones. EKG and Chest x-ray was negative. IV fluids was given and the patient felt a little better but still not completely better. At that time the patient was admitted to the hospital with the Heat exhaustion and sharp chest pain, noncardiac chest pain. Serial cardiac enzymes were done; hgb was stable and three sets are cardiac enzymes are negative. Coag; D-dimer 181 and anemia was stable 11.7 and 11.2 and by today morning the patient was feeling a lot better was able to eat good and ambulate well. At that time the plan of discharge was made patient's chest pain is totally non-cardiac and given her age of 36, no EKG changes, sharp pain and family history which is not consistent with the heart problems and non-smoker. Did any further need for the evaluation for the heart at the given time so the patient will be discharged home and strictly advised to have increased hydration and how to protect herself from the heat stroke. TIME SPENT: More than 55 minutes today. [facility]
== END 2016-12-28 12:40 | disposition home or self-care (01) ==
LOC: ED 05:58 → MEDSURG B 08:10
PROVIDERS: ADMIT Emergency Medicine; ATTEND Emergency Medicine
DX: T67.5XXA Heat exhaustion, unspecified, initial encounter (principal); R07.89 Other chest pain; D64.9 Anemia, unspecified; G43.909 Migraine, unspecified, not intractable, without status migrainosus; J45.909 Unspecified asthma, uncomplicated; K27.9 Peptic ulcer, site unspecified, unspecified as acute or chronic, without hemorrhage or perforation; Z82.49 Family history of ischemic heart disease and other diseases of the circulatory system; Z79.899 Other long term (current) drug therapy; Y92.129 Unspecified place in nursing home as the place of occurrence of the external cause; Y99.0 Civilian activity done for income or pay
CPT/HCPCS: 36415; 80053; 82550; 82962; 84484; 84703; 85025; 85379; 93005; 93010; 99283

== ENCOUNTER 2017-02-08 12:57 | Outpatient (CLI) ==
[2017-02-08 13:16] LABS: BASOPHILS # (AUTO) 0.1 K/uL (0-0.2); BASOPHILS % (AUTO) 0.9 % (0.0-3.0); EOSINOPHILS # (AUTO) 0.1 K/ul (0.0-0.7); EOSINOPHILS % (AUTO) 1.3 % (0.0-7.0); HEMATOCRIT 37.7 % (37.0-47.0); IMMATURE GRANULOCYTE % (AUTO) 0.2 % (0.0-5.0); LYMPHOCYTES # (AUTO) 2.2 K/uL (0.60-3.4); LYMPHOCYTES % (AUTO) 27.2 (10.0-50.0); MEAN CORPUSCULAR HGB CONC 31.8 (31.8-35.4); MEAN CORPUSCULAR VOLUME 75.2 fl (81.0-99.0); MONOCYTES # (AUTO) 0.5 K/uL (0.4-2.0); MONOCYTES % (AUTO) 5.7 (0-10); NEUTROPHILS # (AUTO) 5.3 K/ul (2.0-6.9); NEUTROPHILS % (AUTO) 64.7; PLATELET COUNT 258 10^3/uL (140-440); RED BLOOD COUNT 5.01 10^6/ul (4.20-5.40); WHITE BLOOD COUNT 8.19 K/ul (4.6-10.2)
[2017-02-08 13:32] LABS: FLU INTERNAL QC INTERNAL QC VALID; RAPID FLU A NEGATIVE (NEGATIVE); RAPID FLU B NEGATIVE (NEGATIVE)
--- NOTE | 2017-02-08 13:35 | DI ---
EXAM: Chest two view, frontal and lateral views. HISTORY: Fever, 49. COMPARISON: 12/27/2016. FINDINGS: The heart size is normal. There is no pulmonary vascular congestion. The lungs are fabiola r. No pleural effusion or pneumothorax is seen. No acute osseous abnormality identified. Since prior study, there has been no significant interval change. IMPRESSION: No acute cardiopulmonary process.
[2017-02-08 13:38] LABS: ALBUMIN/GLOBULIN RATIO 1.21; ANION GAP 2.8; BILIRUBIN,TOTAL 0.41 mg/dL (0.00-1.20); BUN/CREATININE RATIO 10.71; CALCIUM 9.4 mg/dL (8.2-10.2); CREATININE 0.84 mg/dL (0.60-1.30); POTASSIUM 3.8 mmol/L (3.5-5.10); TOTAL PROTEIN 7.3 g/dL (6.4-8.2)
== END 2017-02-08 12:58 | disposition home or self-care (01) ==
LOC: RAD 12:57
PROVIDERS: ATTEND Family Medicine
DX: R53.83 Other fatigue (principal); R50.9 Fever, unspecified; J45.901 Unspecified asthma with (acute) exacerbation
CPT/HCPCS: 36415; 80053; 84439; 84443; 85025; 87804

== ENCOUNTER 2017-02-23 10:46 | Emergency (ER) ==
[2017-02-23 10:53] VITALS: BP 114/80; TEMP 97.5
[2017-02-23] MEDS ORDERED: TORADOL IM STA (10:59)
[2017-02-23] MEDS ORDERED: NORCO 10-325 PO STA (10:59)
--- NOTE | 2017-02-23 11:01 | ED.PDOC ---
General ED Provider: Dr. MERRICK HO Chief Complaint: Headache Stated Complaint: chronic headaches Time Seen by Physician: 10:50 (SEEN WITH ROWENA GAN R.N. AT ALL TIMES ) Mode of Arrival: Walk-In Information Source: Patient Exam Limitations: No limitations (STATED HER PMD WOULD NOT CONSIDER MRI / MR A OF BRAIN WHICH WE DISCUSSED AT LAST VISIT) Primary Care Provider: JESSICA SALCEDO Referred to ED by: Other (SEEN PT IN THE PAST FOR SAME PAIN MRI/ MRA DISCUSSED SEE BELOW) Nursing and Triage Documentation Reviewed and Agree: Yes Neurological Complaint Exam - Headache Complaint/Exam Onset: Gradual Duration: 1 DAY SAME TYPE OF H/A BEFORE (NESTOR AT BEDSIDE) Symptoms Are: Still present Timing: Constant Episodes Lasting: Hours Worst Headache Ever: No Initial Severity: Moderate Current Severity: Moderate Location: Frontal, Temporal Character: Reports: Migraine Aggravating: Reports: Exertion Alleviating: Reports: None Associated Signs and Symptoms: Reports: Nausea. Denies: Dizziness, Seizure, Vomiting, Sinus pressure, Fever, Neck pain, Neck stiffness, Decreased LOC, Visual changes Related History: Reports: Similar episode Related Surgical History: Reports: None SAH Risk Factors: Reports: None Meningitis Risk Factors: Reports: None SDH Risk Factors: Reports: None Temporal Arteritis Risk Factors: Reports: Female, Normal Head CT Within Last 12 Months: Yes (MRI AND MRI PENDING DISCUSSED PT STATED HER PMD WONT OBTAIN MRI ) Fundoscopic Exam: Present: Normal Findings Papilledema Present: No Temporal Artery Tenderness: Present: None Sinus Tenderness: Present: None TMJ Tenderness: Present: None Glascow Coma Scale (see protocol): 15 Meningeal Signs Positive: No Pain on Passive Flexion-Positive Kernig's: No ROM Limited In: No Limitiations Focal Weakness: Present: None Focal Sensory Loss: Present: None Gait: Normal Nystagmus Present: No Gag Reflex Present: No Enourg-qa-Dbla: Normal Findings Differential Diagnoses: Migraine Review of Systems - Review Of Systems Constitutional: Reports: No symptoms Eyes: Reports: No symptoms Ears, Nose, Mouth, Throat: Reports: No symptoms Respiratory: Reports: No symptoms Cardiac: Reports: No symptoms GI: Reports: No symptoms : Reports: No symptoms Musculoskeletal: Reports: No symptoms Skin: Reports: No symptoms Neurological: Reports: No symptoms Endocrine: Reports: Other (H/A) Hematologic/Lymphatic: Reports: No symptoms All Other Systems: Reviewed and Negative Past Medical History - Past Medical History Previously Healthy: No Endocrine: Reports: None Cardiovascular: Reports: Hypertension, Other Respiratory: Reports: Asthma Hematological: Reports: Anemia Gastrointestinal: Reports: None Genitourinary: Reports: None Neuro/Psych: Reports: Migraine, Anxiety, Depression, Bipolar Disorder, PTSD Musculoskeletal: Reports: None Cancer: Reports: None Last Menstrual Period: 2 days ago Other Pertinent Past Medical History: low blood sugar - Surgical History General Surgical History: Reports: Tubal ligation (btl07 D&C 2001), ( x2), Orthopedic (RIGHT PINKIE FX REPAIR) - Family History Family History: Reports: Heart (mother with IN and stents at age 50) - Social History Smoking Status: Former smoker Hx Substance Use: No Alcohol Screening: None - Immunizations Tetanus Shot up to Date: No Physical Exam - Physical Exam Appearance: Well-appearing, No pain distress, Well-nourished Eyes: KISHAN, EOMI, Conjunctiva clear ENT: Ears normal, Nose normal, Oropharynx normal Respiratory: Airway patent, Breath sounds clear, Breath sounds equal, Respirations nonlabored Cardiovascular: RRR, Pulses normal, No rub, No murmur GI/: Soft, Nontender, No masses, Bowel sounds normal, No Organomegaly Musculoskeletal: Normal strength, ROM intact, No edema, No calf tenderness Skin: Warm, Dry, Normal color Neurological: Sensation intact, Motor intact, Reflexes intact, Cranial nerves intact, Alert, Oriented Psychiatric: Affect appropriate, Mood appropriate Critical Care Note - Critical Care Note Total Time (mins): 0 Course - Course Orders, Labs, Meds: Orders Category Date Time Status Hydrocodone Bit/Acetaminophen [[place] 10-325] MEDS 02/23/17 10:59 Stat 1 tab PO ONCE STA Ketorolac Tromethamine [Toradol] MEDS 02/23/17 10:59 Stat 60 mg IM ONCE STA Medications Generic Name Dose Route Start Last Admin Trade Name Freq PRN Reason Stop Dose Admin Acetaminophen/Hydrocodone Bitart 1 tab 02/23/17 10:59 [place] 10-325 PO 02/23/17 11:00 ONCE STA Ketorolac Tromethamine 60 mg 02/23/17 10:59 Toradol IM 02/23/17 11:00 ONCE STA Vital Signs: Temp Pulse Resp BP Pulse Ox 02/23/17 10:47 97.5 F L 71 16 114/80 98 Departure - Departure Time of Disposition: 11:45 (NOTE PT SEEN AT ALL TIMES WITH NURSE AT BEDSIDE, MRA MRA DISCUSSED PT WILL DISCUSS WITH PMD NEURO NONEFOCAL, SAME HEADACHE BEFORE) Disposition: HOME SELF-CARE Discharge Problem: Headache Instructions: Acute Headache (ED), Migraine Headache (ED) Condition: Good Pt referred to PMD for follow-up: Yes Additional Instructions: MRI/MRA NEEDED .Please call your Family Physician as soon as possible to schedule a follow-up appointment. Allergies/Adverse Reactions: Allergies sulfamethoxazole [From Bactrim] Adverse Reaction (Verified 02/23/17 10:56) trimethoprim [From Bactrim] Adverse Reaction (Verified 02/23/17 10:56) Home Medications: Ambulatory Orders Norgestimate-Ethinyl Estradiol [Ortho Tri-Cyclen 28 Tablet] 1 tab PO DAILY 11/13 Sumatriptan Succinate [Imitrex] 50 mg PO ONCE #10 tablet 11/13/16 Ranitidine HCl [Zantac] 150 mg PO BIDAC #30 tablet 12/28/16 Disposition Discussed With: Patient
[2017-02-23] MEDS ORDERED: ZOFRAN 4 MG/2 ML IM STA (11:09)
[2017-02-23] MEDS ORDERED: MORPHINE 10 MG/ML SYRINGE IM STA (11:09)
--- NOTE | 2017-02-23 11:55 | CT ---
EXAM: CT of the head without contrast History: Headache. Comparison: Head CT 12/12/2016 Technique: Multiplanar CT images through the head were obtained without the administration of IV con trast Findings: The visualized paranasal sinuses and mastoid air cells are clear in general. No acute nataliya varial abnormalities. Intracranially the ventricular and cisternal spaces are normal in size, shape and configuration for a patient of this age. No dominant mass or midline shift. No hydrocephalous. No acute intracranial hemorrhage or abnormal extraaxial fluid collections. Impression: No acute intracranial process.
== END 2017-02-23 12:15 | disposition home or self-care (01) ==
LOC: ED 10:46
DX: R51 Headache (principal)
CPT/HCPCS: 96372; 99283

== ENCOUNTER 2017-02-28 08:26 | Outpatient (CLI) ==
--- NOTE | 2017-02-28 12:30 | MRI ---
EXAM: MRI brain without IV contrast. DATE: 28 February 2017. HISTORY: Dizziness, mental status change. TECHNIQUE: Sagittal T1W, axial T2W, axial FLAIR, axial T1W, axial DWI, and coronal T2W GRE sequences of the brain were obtained using 1.2 Mary magnet. No IV contrast. COMPARISON: CT head 23 February 2017. FINDINGS: The ventricles, cisterns, and subarachnoid spaces are normal in size and configuration. N o midline shift, mass effect or abnormal extra-axial fluid collection is apparent. No acute infarct, hemorrhage or neoplasm is identified. Minimal FLAIR hyperintensity is now in the white matter abutt ing the anterior horn and body of each lateral ventricle. Subtle areas of IR hyperintensity without corresponding T2W signal abnormality in the left cerebellum may be pulsation artifacts. The obando - wh ite matter differentiation is normal. The 7th/8th cranial nerve complexes, cerebellopontine angles, brainstem, and visible cervical spinal cord are normal. Cerebellar tonsils extend near the inferior margin of the foramen magnum. There is no cerebellar tonsillar ectopia. The pituitary gland is norm al in size and signal. Corpus callosum is normal in size and configuration. Flow voids are present in the major intracranial arteries and in the dural venous sinuses. No aneurysm, AVM or dural venous sinus thrombosis is apparent. No orbit abnormality is identified. The mastoid air cells are unrema rkable. There is no acute sinusitis. No neck mass or lymphadenopathy is detected. No calvarial karen plasm or acute fracture is evident. IMPRESSIONS: 1. No acute infarct, hemorrhage, mass or hydrocephalus. 2. Minimal supratentorial small vessel disease. 3. Pulsation artifacts seen posterior fossa.
== END 2017-02-28 08:27 | disposition home or self-care (01) ==
LOC: RAD 08:26
PROVIDERS: ATTEND Family Medicine
DX: R41.82 Altered mental status, unspecified (principal); R41.0 Disorientation, unspecified; R42 Dizziness and giddiness; R41.3 Other amnesia; Z86.69 Personal history of other diseases of the nervous system and sense organs

== ENCOUNTER 2017-04-25 13:34 | Outpatient (CLI) ==
[2017-04-25 14:20] LABS: BASOPHILS % (AUTO) 0.5 % (0.0-3.0); EOSINOPHILS # (AUTO) 0.1 K/ul (0.0-0.7); EOSINOPHILS % (AUTO) 1.6 % (0.0-7.0); HEMOGLOBIN 11.8 g/dl (12.0-16.0); IMMATURE GRANULOCYTE % (AUTO) 0.4 % (0.0-5.0); LYMPHOCYTES # (AUTO) 1.8 K/uL (0.60-3.4); LYMPHOCYTES % (AUTO) 22.1 (10.0-50.0); MEAN CORPUSCULAR HEMOGLOBIN 23.2 pg (27.0-31.0); MEAN CORPUSCULAR HGB CONC 31.9 (31.8-35.4); MEAN CORPUSCULAR VOLUME 72.7 fl (81.0-99.0); MONOCYTES # (AUTO) 0.4 K/uL (0.4-2.0); MONOCYTES % (AUTO) 4.4 (0-10); NEUTROPHILS # (AUTO) 5.9 K/ul (2.0-6.9); PLATELET COUNT 207 10^3/uL (140-440); RED BLOOD COUNT 5.09 10^6/ul (4.20-5.40); WHITE BLOOD COUNT 8.32 K/ul (4.6-10.2)
--- NOTE | 2017-04-25 14:28 | DI ---
EXAM: CHEST FRONTAL AND LATERAL VIEWS HISTORY: Tiredness. COMPARISON: 02/08/2017 FINDINGS: Heart size and mediastinal contour remain within normal limits. No acute infiltrates. Normal vascularity with no pleural fluid or pneumothorax. The bony thorax has no acute finding. IMPRESSION: No acute process.
[2017-04-25 14:39] LABS: FLU INTERNAL QC INTERNAL QC VALID; RAPID FLU A NEGATIVE (NEGATIVE); RAPID FLU B NEGATIVE (NEGATIVE)
[2017-04-25 15:23] LABS: ALBUMIN 3.9 g/dL (3.4-5.0); ALBUMIN/GLOBULIN RATIO 1.22; BILIRUBIN,TOTAL 0.5 mg/dL (0.00-1.20); BUN/CREATININE RATIO 10.84; CALCIUM 9.4 mg/dL (8.2-10.2); CREATININE 0.83 mg/dL (0.60-1.30); TOTAL PROTEIN 7.1 g/dL (6.4-8.2)
== END 2017-04-25 13:35 | disposition home or self-care (01) ==
LOC: RAD 13:34
PROVIDERS: ATTEND Family Medicine
DX: J02.9 Acute pharyngitis, unspecified (principal); R06.02 Shortness of breath; R53.83 Other fatigue; Z87.09 Personal history of other diseases of the respiratory system
CPT/HCPCS: 36415; 80053; 85025; 87651; 87804; 87880

== ENCOUNTER 2017-07-17 13:56 | Outpatient (CLI) | END 2017-07-17 13:57 | disposition home or self-care (01) | LOC: LAB 13:56 | PROVIDERS: ATTEND Family Medicine | DX: R52 Pain, unspecified (principal) | CPT/HCPCS: 87502 ==

== ENCOUNTER 2018-02-24 19:09 | Emergency (ER) ==
[2018-02-24 19:18] VITALS: BP 121/77; TEMP 98.8; BMI 19.1
[2018-02-24] MEDS ORDERED: IMITREX SUBCUT STA (19:43)
[2018-02-24] MEDS ORDERED: ZOFRAN ODT PO STA (19:43)
[2018-02-24] MEDS ORDERED: TORADOL IM STA (19:43)
--- NOTE | 2018-02-24 20:38 | ED.PDOC ---
General ED Provider: Dr. LUCAS VERDUGO Chief Complaint: Headache Stated Complaint: Patient presents to the ER with c/o ALONSO typical for her migraines for 4 days. Has been out of imitrex. Pain is located mostly on the right radiating to the back of the head. Time Seen by Physician: 19:40 Mode of Arrival: Walk-In Information Source: Patient Exam Limitations: No limitations Primary Care Provider: ANGEL DAIGLE Nursing and Triage Documentation Reviewed and Agree: Yes Does patient meet sepsis criteria?: No System Inflammatory Response Syndrome: Not Applicable Sepsis Protocol: For patient's 13 years and over: Temp is 96.8 and below OR 101 and greater Pulse >90 BPM Resp >20/minute Acutely Altered Mental Status Are patient's symptoms suggestive of a new infection, such as: -Pneumonia -Skin, Soft Tissue -Endocarditis -UTI -Bone, Joint Infection -Implantable Device -Acute Abdominal Infection -Wound Infection -Meningitis -Blood Stream Catheter Infection -Unknown Neurological Complaint Exam - Headache Complaint/Exam Onset: Gradual Duration: 4 days Symptoms Are: Still present Timing: Constant Worst Headache Ever: No Initial Severity: Moderate Current Severity: Severe Location: Right, Frontal, Temporal, Parietal Character: Reports: Throbbing Aggravating: Reports: Bright lights Alleviating: Reports: None Associated Signs and Symptoms: Reports: Nausea. Denies: Dizziness, Seizure, Sinus pressure, Fever, Neck pain, Neck stiffness, Decreased LOC, Visual changes Related Surgical History: Reports: None SAH Risk Factors: Reports: None Meningitis Risk Factors: Reports: None SDH Risk Factors: Reports: None Temporal Arteritis Risk Factors: Reports: None Normal Head CT Within Last 12 Months: Yes Fundoscopic Exam: Present: Normal Findings Papilledema Present: No Temporal Artery Tenderness: Present: None Sinus Tenderness: Present: None TMJ Tenderness: Present: None Glascow Coma Scale (see protocol): 15 Meningeal Signs Positive: No Pain on Passive Flexion-Positive Kernig's: No ROM Limited In: No Limitiations Focal Weakness: Present: None Focal Sensory Loss: Present: None Gait: Normal Nystagmus Present: No Gag Reflex Present: Yes [id number]-[id number]: Normal Findings Romberg Test Positive: No Babinski Sign: Negative Right, Negative Left Head Picture: 1 - area of pain but no tenderness to palpation on the sinus regions. Differential Diagnoses: Migraine, Sinus Headache, Tension Headache Review of Systems - Review Of Systems Constitutional: Reports: No symptoms Eyes: Reports: Photophobia Ears, Nose, Mouth, Throat: Reports: No symptoms Respiratory: Reports: No symptoms Cardiac: Reports: No symptoms GI: Reports: Nausea, Poor appetite : Reports: No symptoms Musculoskeletal: Reports: No symptoms Skin: Reports: No symptoms Neurological: Reports: Anxiety, Headache Endocrine: Reports: No symptoms Hematologic/Lymphatic: Reports: No symptoms All Other Systems: Reviewed and Negative Past Medical History - Past Medical History Previously Healthy: No Endocrine: Reports: None Cardiovascular: Reports: Hypertension, Other Respiratory: Reports: Asthma Hematological: Reports: Anemia Gastrointestinal: Reports: None Genitourinary: Reports: None Neuro/Psych: Reports: Migraine, Anxiety, Depression, Bipolar Disorder, PTSD Musculoskeletal: Reports: None Cancer: Reports: None Last Menstrual Period: 2 WEEKS AGO Other Pertinent Past Medical History: low blood sugar - Surgical History General Surgical History: Reports: Tubal ligation (btl07 D&C 2001), ( x2), Orthopedic (RIGHT PINKIE FX REPAIR) - Family History Family History: Reports: Heart (mother with HI and stents at age 50) - Social History Smoking Status: Former smoker Hx Substance Use: No Alcohol Screening: None - Immunizations Tetanus Shot up to Date: No Physical Exam - Physical Exam Appearance: Ill-appearing Ill-appearing: Moderate Pain Distress: Severe Eyes: KISHAN, EOMI Neck: Supple Respiratory: Airway patent, Breath sounds clear, Breath sounds equal, Respirations nonlabored Cardiovascular: RRR, Pulses normal, No rub, No murmur Musculoskeletal: Normal strength, ROM intact Neurological: Sensation intact, Motor intact, Alert, Oriented Psychiatric: Anxious Re-Evaluation - Re-Evaluation Time of Re-Evaluation: 20:39 Status: Improved Pain Level: pain is gone Critical Care Note - Critical Care Note Total Time (mins): 0 Course - Course Orders, Labs, Meds: Orders Category Date Time Status Ketorolac Tromethamine [Toradol] MEDS 02/24/18 19:43 Discontinued 60 mg IM ONCE STA Ondansetron [Zofran Odt] MEDS 02/24/18 19:43 Discontinued 4 mg PO ONCE STA Sumatriptan Succinate [Imitrex] MEDS 02/24/18 19:43 Discontinued 6 mg SUBCUT ONCE STA Medications Discontinued Medications Generic Name Dose Route Start Last Admin Trade Name Penny PRN Reason Stop Dose Admin Ketorolac Tromethamine 60 mg 02/24/18 19:43 02/24/18 20:02 Toradol IM 02/24/18 19:44 60 mg ONCE STA Administration Ondansetron HCl 4 mg 02/24/18 19:43 02/24/18 19:58 Zofran Odt PO 02/24/18 19:44 4 mg ONCE STA Administration Sumatriptan Succinate 6 mg 02/24/18 19:43 02/24/18 20:04 Imitrex SUBCUT 02/24/18 19:44 6 mg ONCE STA Administration Vital Signs: Temp Pulse Resp BP Pulse Ox 02/24/18 19:10 98.8 F 88 8 L 121/77 99 Departure - Departure Time of Disposition: 20:39 Disposition: HOME SELF-CARE Discharge Problem: Migraine Qualifiers: Migraine type: without aura Status migrainosus presence: without status migrainosus Intractability: not intractable Qualified Code(s): G43.009 - Migraine without aura, not intractable, without status migrainosus Instructions: Migraine Headache (ED) Condition: Good Pt referred to PMD for follow-up: Yes IPMP verified?: No Additional Instructions: Take home medications as prescribed Follow up with PCP in 3 days Prescriptions: Sumatriptan Succinate [Imitrex] 25 mg PO BID PRN #30 tablet PRN Reason: Headaches Allergies/Adverse Reactions: Allergies risperidone [From Risperdal] Allergy (Verified 02/24/18 19:19) tramadol Allergy (Verified 02/24/18 19:19) sulfamethoxazole [From Bactrim] Adverse Reaction (Verified 02/24/18 19:19) trimethoprim [From Bactrim] Adverse Reaction (Verified 02/24/18 19:19) Home Medications: Ambulatory Orders Sumatriptan Succinate [Imitrex] 25 mg PO BID PRN #30 tablet 02/24/18 Vortioxetine Hydrobromide [Brintellix] 5 mg PO BEDTIME 02/24/18 Disposition Discussed With: Patient, Family
== END 2018-02-24 20:52 | disposition home or self-care (01) ==
LOC: ED 19:09
DX: G43.009 Migraine without aura, not intractable, without status migrainosus (principal)
CPT/HCPCS: 96372; 99283

== ENCOUNTER 2018-07-02 15:43 | Outpatient (CLI) ==
[2018-06-09 15:09] VITALS: BMI 19.1
== END 2018-07-02 15:44 | disposition home or self-care (01) ==
LOC: LAB 15:43
PROVIDERS: ATTEND Family Medicine
DX: D50.9 Iron deficiency anemia, unspecified (principal); Z91.14 Patient's other noncompliance with medication regimen; Z86.69 Personal history of other diseases of the nervous system and sense organs; Z86.59 Personal history of other mental and behavioral disorders
CPT/HCPCS: 36415; 82728; 83540; 83550; 84466; 85008; 85025